=== PATIENT | female | born 1955 | race Caucasian/White ===

== ENCOUNTER 2020-12-26 13:45 | Outpatient (CLI) | payer MEDICARE | END 2020-12-26 13:46 | disposition home or self-care (01) | LOC: ULT 13:45 | PROVIDERS: ATTEND Physician Assistant | DX: R22.31 Localized swelling, mass and lump, right upper limb (principal) | CPT/HCPCS: 76999 ==

== ENCOUNTER 2021-01-09 08:56 | Outpatient (CLI) | payer MEDICARE | END 2021-01-09 08:57 | disposition home or self-care (01) | LOC: PET 08:56 | PROVIDERS: ATTEND Physician Assistant | DX: R59.9 Enlarged lymph nodes, unspecified (principal); L98.9 Disorder of the skin and subcutaneous tissue, unspecified; R91.8 Other nonspecific abnormal finding of lung field; Z85.038 Personal history of other malignant neoplasm of large intestine | CPT/HCPCS: 78816; A9552 ==

== ENCOUNTER 2024-02-07 12:40 | Outpatient (CLI) | payer MEDICARE ==
[~2024-02-07 12:40] MED LIST: Iopamidol 370 76% 100 ML VIAL ONE
== END 2024-02-07 12:41 | disposition home or self-care (01) ==
LOC: CT 12:40
PROVIDERS: ATTEND Physician Assistant Medical
DX: K52.9 Noninfective gastroenteritis and colitis, unspecified (principal); R10.84 Generalized abdominal pain; K92.1 Melena; Z85.048 Personal history of other malignant neoplasm of rectum, rectosigmoid junction, and anus; Z87.19 Personal history of other diseases of the digestive system; Z90.49 Acquired absence of other specified parts of digestive tract; K76.89 Other specified diseases of liver
CPT/HCPCS: 36415; 74177; 82565; Q9967